=== PATIENT | male | born 1955 | race Caucasian/White ===

== ENCOUNTER 2023-04-11 17:07 | Emergency (ER) | payer MEDICARE, OTHER | END 2023-04-11 21:38 | disposition home or self-care (01) | LOC: CSHERS 17:07 | DX: R51.9 Headache, unspecified (principal); K21.9 Gastro-esophageal reflux disease without esophagitis; E78.00 Pure hypercholesterolemia, unspecified; I10 Essential (primary) hypertension; Z79.899 Other long term (current) drug therapy; Z79.82 Long term (current) use of aspirin | CPT/HCPCS: 70450 ==

== ENCOUNTER 2025-03-21 18:36 | Emergency (ER) | payer MEDICARE, OTHER ==
[~2025-03-21 18:36] MED LIST: Iopamidol 370 76% 100 ML VIAL ONE
[2025-03-21] MEDS ORDERED: Lidocaine 1% w/Epinephrine 1:200K 30 ML VIAL ONE (20:03)
[2025-03-21] MEDS ORDERED: Cephalexin 250 MG CAP ONE (20:04)
[2025-03-21] MEDS ORDERED: Bacitracin 1 PK ONE (20:16)
== END 2025-03-21 21:41 | disposition home or self-care (01) ==
LOC: CSHERS 18:36
DX: S81.011A Laceration without foreign body, right knee, initial encounter (principal); I10 Essential (primary) hypertension; Z95.0 Presence of cardiac pacemaker; W22.8XXA Striking against or struck by other objects, initial encounter
CPT/HCPCS: 12002; 99283; Q9967